=== PATIENT | female | born 1955 | race Caucasian/White ===

== ENCOUNTER 2021-12-26 18:55 | Emergency (ER) | payer MEDICAID ==
[~2021-12-26] VITALS: Ht 165.1 cm; Wt 63.5 kg
[2021-12-26 19:05] VITALS: BP_SYST 175
[2021-12-26 19:41] LABS: BASOPHILS % (AUTO) 0.7 % (0.0-2.0); EOSINOPHILS # (AUTO) 0.2 K/uL (0.0-0.4); EOSINOPHILS % (AUTO) 3.1 % (0.0-4.0); HEMATOCRIT 37.8 % (36-48); HEMOGLOBIN 12.4 g/dL (12.0-16.0); LYMPHOCYTES # (AUTO) 1.4 K/uL (1.0-5.5); LYMPHOCYTES % (AUTO) 21.3 % (20.5-51.5); MEAN CORPUSCULAR HEMOGLOBIN 29 pg (27-31); MEAN CORPUSCULAR HGB CONC 33 % (32-36); MEAN CORPUSCULAR VOLUME 88 fL (79.0-98.0); MONOCYTES # (AUTO) 0.5 K/uL (0.0-1.0); MONOCYTES % (AUTO) 7.9 % (1.7-9.3); NEUTROPHILS # (AUTO) 4.3 K/uL (1.8-7.7); PLATELET COUNT (AUTO) 227 K/uL (130-430); RED BLOOD CELL COUNT(AUTO) 4.29 MIL/uL (4.2-6.2); RED CELL DISTRIBUTION WIDTH 13.9 % (9.0-15.0); WHITE BLOOD COUNT (AUTO) 6.4 K/uL (4.8-10.8)
[2021-12-26 19:54] LABS: ANION GAP 12 (5-15); CALCIUM 9.3 mg/dL (8.4-11.0); CHLORIDE 104 mmol/L (98-107); CREATININE 1.06 mg/dL (0.55-1.30); GFR AFRICAN AMERICAN 67 mL/min (>90); GLUCOSE 84 mg/dL (70-99); POTASSIUM 4.4 mmol/L (3.5-5.1); SODIUM SERUM 140 mmol/L (136-145); UREA NITROGEN, BLOOD 26 mg/dL (8-21)
[2021-12-26 20:02] LABS: ALANINE AMINOTRANSFERASE 13 U/L (12-78); ALBUMIN 3.6 g/dL (3.4-4.8); ASPARTATE AMINOTRANSFERASE 23 U/L (10-37); TOTAL BILIRUBIN < 0.1 mg/dL (0.0-1.0)
[2021-12-26 20:57] VITALS: BP_SYST 159
== END 2021-12-26 20:57 | disposition home or self-care (01) ==
LOC: SED 18:55
DX: H54.61 Unqualified visual loss, right eye, normal vision left eye (principal); I10 Essential (primary) hypertension
CPT/HCPCS: 36415; 70450-TC; 76376; 80053; 84484; 85025; 93005; 99285